=== PATIENT | male | born 1965 | race Caucasian/White ===

== ENCOUNTER 2018-02-06 20:35 | Emergency (ER) | payer MEDICAID, OTHER ==
--- NOTE | 2018-02-06 21:23 | XRAY Report ---
Procedure Date: 02/06/2018 Accession Number: [id number] / [id number] Procedure: XR - Chest 2 View X-Ray CPT Code: 46200 FULL RESULT: EXAM: CHEST RADIOGRAPHY EXAM DATE: 02/06/2018 09:14 PM. CLINICAL HISTORY: Chest pain, palpitations. COMPARISON: None. TECHNIQUE: 2 views. FINDINGS: Lungs/Pleura: No focal opacities evident. No pleural effusion. No pneumothorax. Normal volumes. Mediastinum: Heart and mediastinal contours are unremarkable. Other: Previous left shoulder surgery. IMPRESSION: Negative for an acute cardiopulmonary abnormality. RADIA
[2018-02-06 21:28] LABS: BASOPHILS % (AUTO) 0.5 %; EOSINOPHILS % (AUTO) 0.1 %; HGB - HEMOGLOBIN 12.6 g/dL (14.0-18.0); LYMPHOCYTES % (AUTO) 10.8 %; MEAN CORPUSCULAR HGB CONC 35.9 g/dL (32.0-36.0); MEAN CORPUSCULAR VOLUME 89.2 fL (80.0-94.0); MEAN PLATELET VOLUME 8.6 fL (7.4-11.4); MONOCYTES # (AUTO) 0.8 10^3/uL (0.0-1.0); MONOCYTES % (AUTO) 8.8 %; NEUTROPHILS # (AUTO) 7.3 10^3/uL (1.5-6.6); NEUTROPHILS % (AUTO) 79.8 %; PLT - PLATELET COUNT 254 10^3/uL (130-450); RED BLOOD COUNT 3.93 10^6/uL (4.70-6.10); RED CELL DISTRIBUTION WIDTH 13.6 % (12.0-15.0); WHITE BLOOD COUNT 9.1 x10^3/uL (4.8-10.8)
[2018-02-06 21:43] LABS: ALBUMIN 3.6 g/dL (3.2-5.5); ALBUMIN/GLOBULIN RATIO 1.2 (1.0-2.2); BILIRUBIN,TOTAL 0.6 mg/dL (0.2-1.0); CALCIUM 8.7 mg/dL (8.5-10.3); CREATININE 0.8 mg/dL (0.6-1.2); TOTAL PROTEIN 6.6 g/dL (6.7-8.2)
[2018-02-06] MEDS ORDERED: SODIUM CHLORIDE 0.9% 1,000 ML IV ONE (21:49)
[2018-02-06] MEDS ORDERED: ALBUTEROL NEB 2.5 MG/3 ML INH STA (21:49)
--- NOTE | 2018-02-06 22:49 | ED Physician Documentation ---
History of Present Illness - Stated complaint Stated Complaint: DIZZY/CHILLS - Chief complaint Chief Complaint: Cardiac - History obtained from History obtained from: Patient - History of Present Illness Timing: Today - Additonal information Additional information: Patient is a 52 year old male who is presenting to the emergency department for not feeling well and generalized weakness. about 5 days ago patient was ambrosio when he fell cutting the artery in his wrist. patient had to be airlifted to the trauma center and he had the wound repaired. Patient tried to go back to work for he first time today. patient states when he was trying to work he just did not feel well. Patient states that he had some mild nausea and some intermittent chest pain that has resolved. Review of Systems Ten Systems: 10 systems reviewed and negative Constitutional: reports: Fatigue. denies: Fever, Chills Eyes: reports: Reviewed and negative Ears: reports: Reviewed and negative Cardiac: reports: Chest pain / pressure. denies: Palpitations Respiratory: reports: Wheezing. denies: Dyspnea GI: reports: Nausea. denies: Vomiting, Constipation, Diarrhea : denies: Dysuria, Frequency, Hesitancy Neurologic: reports: Generalized weakness. denies: Focal weakness, Numbness, Headache, Head injury, LOC PD PAST MEDICAL HISTORY - Past Surgical History HEENT: Tonsil/Adenoidectomy - Present Medications Home Medications: Ambulatory Orders Medication Instructions Recorded Confirmed Albuterol Sulfate [Proventil Hfa 1 - 2 puffs INH Q4H PRN #1 inhaler 02/06/18 Inhaler] oxyCODONE [Roxicodone] 5 mg PO ONCE 02/06/18 02/06/18 - Allergies Allergies/Adverse Reactions: Allergies Allergy/AdvReac Type Severity Reaction Status Date / Time No Known Drug Allergies Allergy Verified 02/06/18 20:45 - Social History Does the pt smoke?: Yes Smoking Status: Current every day smoker Does the pt drink ETOH?: No Does the pt have substance abuse?: No - Immunizations Immunizations are current?: Yes PD ED PE NORMAL - General General: Alert and oriented X 3, No acute distress, Well developed/nourished - HEENT HEENT: Atraumatic - Neck Neck: Supple, no meningeal sign - Cardiac Cardiac: RRR, No murmur - Abdomen Abdomen: Soft - Derm Derm: Normal color PD ED PE EXPANDED - HEENT HEENT: Dry mucous membranes - Cardiac Cardiac: Cap refill < 2 sec. No: Prolonged cap refill - Respiratory Respiratory: Wheezing, Right upper lobe, Left upper lobe Results - Vitals Vitals: Vital Signs - 24 hr 02/06/18 02/06/18 02/06/18 20:42 22:06 23:05 Temperature 37.3 C Heart Rate 93 76 80 Respiratory 16 18 18 Rate Blood Pressure 119/66 114/76 O2 Saturation 96 94 Oxygen O2 Source Nasal cannula - EKG (time done) 2055 Rate: Rate (enter#) (83) Rhythm: NSR [place]: Normal QRS: Normal Ischemia: ST elevation c/w repol - Labs Labs: Laboratory Tests 02/06/18 02/06/18 02/06/18 21:26 21:26 21:26 WBC 9.1 RBC 3.93 L Hgb 12.6 L Hct 35.1 L MCV 89.2 MCH 32.0 H MCHC 35.9 RDW 13.6 Plt Count 254 MPV 8.6 Neut # (Auto) 7.3 H Lymph # (Auto) 1.0 L [place] # (Auto) 0.8 Eos # (Auto) 0.0 Baso # (Auto) 0.0 Absolute Nucleated RBC 0.01 Nucleated RBC % 0.1 Sodium 134 L Potassium 3.7 Chloride 102 Carbon Dioxide 25 Anion Gap 7.0 BUN 13 Creatinine 0.8 Estimated GFR (MDRD) 102 Glucose 140 H Calcium 8.7 Total Bilirubin 0.6 AST 16 ALT 12 Alkaline Phosphatase 53 Troponin I < 0.04 Total Protein 6.6 L Albumin 3.6 Globulin 3.0 Albumin/Globulin Ratio 1.2 Lipase 19 L - Rads (name of study) chest x-ray Radiology: Final report received (normal) PD MEDICAL DECISION MAKING - ED course Complexity details: reviewed old records, reviewed results, re-evaluated patient , considered differential, d/w patient ED course: Patient was seen and examined at bedside. IV access was gained and labs were drawn. ekg was performed and was within normal limits. patient was treated with a fluid bolus. chest x-ray was performed and showed no acute abnormalities. Patient had a mild bilateral wheeze and was treated with a breathing treatment which gave some improvement. Patient's diagnostics were all within normal limits. there were no significant abnormalities. Patient required no further inpatient work up at this time and was stable for discharge with outpatient follow up. - Sepsis Event Vital Signs: Vital Signs - 24 hr 02/06/18 02/06/18 02/06/18 20:42 22:06 23:05 Temperature 37.3 C Heart Rate 93 76 80 Respiratory 16 18 18 Rate Blood Pressure 119/66 114/76 O2 Saturation 96 94 Oxygen O2 Source Nasal cannula Departure - Departure Disposition: 01 Home, Self Care Clinical Impression: Dehydration Condition: Good Instructions: ED Dehydration Follow-Up: primary,care provider [Other] - Within 3 Days Prescriptions: Albuterol Sulfate [Proventil Hfa Inhaler] 1 - 2 puffs INH Q4H PRN #1 inhaler PRN Reason: Shortness Of Air/Wheezing Comments: Your diagnostics today were within normal limits. there was no significant abnormalities. You should make sure you stay well hydrated and get plenty of rest. You should follow up with your doctor if your symptoms persist. You may return to the emergency department at any time for new, worsening or uncontrollable symptoms. Discharge Date/Time: 02/06/18 23:34
[2018-02-06 23:06] VITALS: BP 114/76
== END 2018-02-06 23:34 | disposition home or self-care (01) ==
LOC: ED 20:35
DX: E86.0 Dehydration (principal); F17.200 Nicotine dependence, unspecified, uncomplicated
CPT/HCPCS: 36415; 71046; 80053; 83690; 84484; 85025; 93005; 94640; 96360; 99283; 99284

== ENCOUNTER 2019-09-16 20:42 | Outpatient (CLI) | payer SELFPAY | END 2019-09-16 20:43 | disposition home or self-care (01) | LOC: COV 20:42 | PROVIDERS: ATTEND Family Medicine | DX: R05 Cough (principal); Z20.828 Contact with and (suspected) exposure to other viral communicable diseases ==